=== PATIENT | male | born 1985 | race Caucasian/White ===

== ENCOUNTER 2018-08-24 22:24 | Emergency (ER) | payer SELFPAY ==
[~2018-08-24] VITALS: Ht 175.3 cm; Wt 95.9 kg
[2018-08-24 22:30] VITALS: BP 111/72
== END 2018-08-24 23:24 | disposition home or self-care (01) ==
LOC: ED 23:18
DX: G89.29 Other chronic pain (principal); M79.672 Pain in left foot; M79.671 Pain in right foot; Z72.9 Problem related to lifestyle, unspecified
CPT/HCPCS: 99281